=== PATIENT | male | born 1965 | race Caucasian/White ===

== ENCOUNTER 2020-08-08 13:14 | Inpatient (IN) ==
[2020-08-08] MEDS ORDERED: Ondansetron 4 mg VIAL 2 MG/ML 2 ml VIAL IV PRN (14:17)
[2020-08-08] MEDS ORDERED: Furosemide 40 mg/4 ml IV VIAL IV SLOW PU ONE (14:39)
[2020-08-08] MEDS ORDERED: Piperacillin/Tazobac ADVAN 3.375 GM in NS 0.9% 100 ml BAG 100 ML IV ONE (14:41)
[2020-08-08] MEDS ORDERED: Dextrose 50% Syringe 50 ml 25 GM/50 ML SYRINGE IV PUSH PRN (14:41)
[2020-08-08] MEDS ORDERED: Zosyn per Pharmacy NOTE FOLLOW UP SCH (15:00)
[2020-08-08] MEDS: Enoxaparin 40 MG/0.4 ML SYR SUBCUT SCH (17:11)
[2020-08-08] MEDS: Linezolid 600 MG IVPREMIX(*) 600 MG/300 ML BAG IVPB SCH (17:11)
[2020-08-08] MEDS: ZOSYN 3.375 GM Q8H per EXTENDED INFUSION IV SCH (23:03)
[2020-08-09] MEDS: Linezolid 600 MG IVPREMIX(*) 600 MG/300 ML BAG IVPB SCH ×2 (04:26→15:36)
[2020-08-09] MEDS: ZOSYN 3.375 GM Q8H per EXTENDED INFUSION IV SCH ×3 (05:50→21:47)
[2020-08-09 09:27] LABS: ABS Eosinophils 0.5 10^3/ul (0-0.6); ABS Lymphocytes 0.8 10^3/ul (1.0-4.8); ABS Monocytes 0.7 10^3/ul (0-0.8); ABS Neutrophils 5.5 10^3/ul (1.5-7.7); Eosinophil % 6.7 %; Hematocrit 27 % (42-52); Hemoglobin 9.1 g/dL (14.0-18.0); Lymphocyte % 10.1 %; Mean Corpuscular HGB Conc 34 g/dL (31-36); Mean Corpuscular Hemoglobin 28 pg (27-31); Mean Corpuscular Volume 84 fL (80-94); Platelet Count 141 10^3/uL (150-450); Red Blood Count 3.21 10^6 /uL (4.18-5.48); Red Cell Distribution Width 14 % (10-15); White Blood Count 7.5 10^3/uL (3.5-10.8)
[2020-08-09 09:38] LABS: ALT 5 U/L (7-52); AST 8 U/L (13-39); Albumin 2.7 g/dL (3.2-5.2); Albumin/Globulin Ratio 0.8 (1-3); Alkaline Phosphatase 60 U/L (34-104); Anion Gap 8 mmol/L (2-11); BUN/Creatinine Ratio 15.8 (8-20); Blood Urea Nitrogen 26 mg/dL (6-24); C Reactive Protein 227.96 mg/L (<8.01); CO2 Carbon Dioxide 27 mmol/L (22-32); Chloride 102 mmol/L (101-111); EGFR African American 52.7 (>60); EGFR Non-African American 43.5 (>60); Globulin 3.3 g/dL (2-4); Glucose 140 mg/dL (70-100); Magnesium 1.3 mg/dL (1.9-2.7); Potassium 3.9 mmol/L (3.5-5.0); Sodium 137 mmol/L (135-145)
[2020-08-09] MEDS: Potassium Chlor 10 meq TAB PO SCH (09:40)
[2020-08-09 09:51] LABS: Troponin I 0.04 ng/mL (<0.03)
[2020-08-09] MEDS ORDERED: Magnesium Sulf 4 GM/100 ML IV 4,000 MG/100 ML BAG IVPB ONE (09:59)
[2020-08-09] MEDS ORDERED: Furosemide 40 mg/4 ml IV VIAL IV SLOW PU ONE (10:00)
[2020-08-09] MEDS ORDERED: Furosemide 20 mg/2 ml IV VIAL IV SLOW PU ONE (12:33)
[2020-08-09] MEDS: Enoxaparin 40 MG/0.4 ML SYR SUBCUT SCH (15:42)
[2020-08-09 16:17] LABS: ABS Eosinophils 0.4 10^3/ul (0-0.6); ABS Lymphocytes 0.7 10^3/ul (1.0-4.8); ABS Monocytes 0.5 10^3/ul (0-0.8); ABS Neutrophils 4.2 10^3/ul (1.5-7.7); Eosinophil % 7.4 %; Hematocrit 27 % (42-52); Hemoglobin 8.8 g/dL (14.0-18.0); Lymphocyte % 12.3 %; Mean Corpuscular HGB Conc 33 g/dL (31-36); Mean Corpuscular Hemoglobin 28 pg (27-31); Mean Corpuscular Volume 85 fL (80-94); Mean Platelet Volume 8.1 fL (7.4-10.4); Platelet Count 148 10^3/uL (150-450); Red Blood Count 3.14 10^6 /uL (4.18-5.48); Red Cell Distribution Width 15 % (10-15); White Blood Count 5.9 10^3/uL (3.5-10.8)
[2020-08-09 16:26] LABS: Anion Gap 7 mmol/L (2-11); Blood Urea Nitrogen 26 mg/dL (6-24); C Reactive Protein 221.43 mg/L (<8.01); CO2 Carbon Dioxide 28 mmol/L (22-32); Calcium 8.1 mg/dL (8.6-10.3); Chloride 102 mmol/L (101-111); EGFR African American 53.4 (>60); EGFR Non-African American 44.1 (>60); Glucose 100 mg/dL (70-100); Potassium 3.7 mmol/L (3.5-5.0); Sodium 137 mmol/L (135-145)
[2020-08-09 16:46] LABS: Troponin I 0.03 ng/mL (<0.03)
[2020-08-09 17:22] LABS: Magnesium 2.6 mg/dL (1.9-2.7)
[2020-08-09 18:54] LABS: Erythrocyte Sed Rate > 120 mm/Hr (0-19)
[2020-08-09] MEDS ORDERED: levETIRAcetam 500 MG IVPREMIX 500 MG/100 ML BAG IV ONE (22:03)
[2020-08-09 22:21] LABS: Troponin I 0.03 ng/mL (<0.03)
[2020-08-10] MEDS: Linezolid 600 MG IVPREMIX(*) 600 MG/300 ML BAG IVPB SCH ×2 (03:37→16:38)
[2020-08-10] MEDS: ZOSYN 3.375 GM Q8H per EXTENDED INFUSION IV SCH ×3 (05:25→21:32)
[2020-08-10 05:34] LABS: ABS Eosinophils 0.6 10^3/ul (0-0.6); ABS Lymphocytes 0.7 10^3/ul (1.0-4.8); ABS Monocytes 0.5 10^3/ul (0-0.8); ABS Neutrophils 5.7 10^3/ul (1.5-7.7); Eosinophil % 7.6 %; Hematocrit 27 % (42-52); Hemoglobin 9.1 g/dL (14.0-18.0); Lymphocyte % 8.7 %; Mean Corpuscular HGB Conc 34 g/dL (31-36); Mean Corpuscular Hemoglobin 28 pg (27-31); Mean Corpuscular Volume 83 fL (80-94); Mean Platelet Volume 8.2 fL (7.4-10.4); Platelet Count 207 10^3/uL (150-450); Red Blood Count 3.21 10^6 /uL (4.18-5.48); Red Cell Distribution Width 15 % (10-15); White Blood Count 7.5 10^3/uL (3.5-10.8)
[2020-08-10 05:40] LABS: INR 1.91 (0.82-1.09)
[2020-08-10 05:47] LABS: BUN/Creatinine Ratio 16.6 (8-20); Calcium 7.8 mg/dL (8.6-10.3); EGFR African American 61.1 (>60); EGFR Non-African American 50.5 (>60); Magnesium 1.9 mg/dL (1.9-2.7); Potassium 3.9 mmol/L (3.5-5.0)
[2020-08-10] MEDS: CMCS:Simvastatin 20 mg TAB (NF) PO SCH (13:09)
[2020-08-10] MEDS: Potassium Chlor 10 meq TAB PO SCH (13:09)
[2020-08-10] MEDS: Enoxaparin 40 MG/0.4 ML SYR SUBCUT SCH (16:37)
[2020-08-11] MEDS ORDERED: Haloperidol 5 mg/ml SDV IV/IM 5 MG/ML AMP IV SLOW PU ONE (05:30)
[2020-08-11] MEDS ORDERED: Haloperidol 5 mg/ml SDV IV/IM 5 MG/ML AMP ONE (05:31)
[2020-08-11] MEDS: Linezolid 600 MG IVPREMIX(*) 600 MG/300 ML BAG IVPB SCH ×2 (05:37→17:29)
[2020-08-11 06:05] LABS: BUN/Creatinine Ratio 15.7 (8-20); Blood Urea Nitrogen 22 mg/dL (6-24); CO2 Carbon Dioxide 25 mmol/L (22-32); Calcium 7.8 mg/dL (8.6-10.3); Chloride 98 mmol/L (101-111); EGFR African American 63.7 (>60); EGFR Non-African American 52.6 (>60); Glucose 287 mg/dL (70-100); Phosphorus 3.3 mg/dL (2.5-5.0); Sodium 131 mmol/L (135-145)
[2020-08-11 06:07] LABS: ABS Eosinophils 0.7 10^3/ul (0-0.6); ABS Lymphocytes 0.6 10^3/ul (1.0-4.8); ABS Monocytes 0.6 10^3/ul (0-0.8); ABS Neutrophils 6.1 10^3/ul (1.5-7.7); Eosinophil % 8.4 %; Hematocrit 28 % (42-52); Hemoglobin 9.4 g/dL (14.0-18.0); Lymphocyte % 7.8 %; Mean Corpuscular HGB Conc 33 g/dL (31-36); Mean Corpuscular Hemoglobin 28 pg (27-31); Mean Corpuscular Volume 85 fL (80-94); Mean Platelet Volume 7.4 fL (7.4-10.4); Platelet Count 214 10^3/uL (150-450); Red Blood Count 3.36 10^6 /uL (4.18-5.48); Red Cell Distribution Width 15 % (10-15)
[2020-08-11 06:12] LABS: Anion Gap 8 mmol/L (2-11)
[2020-08-11] MEDS: ZOSYN 3.375 GM Q8H per EXTENDED INFUSION IV SCH ×3 (06:32→21:02)
[2020-08-11] MEDS: Potassium Chlor 10 meq TAB PO SCH (09:07)
[2020-08-11] MEDS: CMCS:Simvastatin 20 mg TAB (NF) PO SCH (10:36)
[2020-08-11] MEDS ORDERED: Alteplase (CATHFLO) 2 MG VIAL IV ONE (11:00)
[2020-08-11 11:30] LABS: Magnesium 1.6 mg/dL (1.9-2.7); Potassium Redraw 3.4 mmol/L (3.5-5.0)
[2020-08-11] MEDS: Enoxaparin 40 MG/0.4 ML SYR SUBCUT SCH (14:52)
[2020-08-12] MEDS: Linezolid 600 MG IVPREMIX(*) 600 MG/300 ML BAG IVPB SCH ×2 (03:18→15:59)
[2020-08-12] MEDS: ZOSYN 3.375 GM Q8H per EXTENDED INFUSION IV SCH ×3 (04:29→20:08)
[2020-08-12 04:59] LABS: Anion Gap 6 mmol/L (2-11); BUN/Creatinine Ratio 16.5 (8-20); Blood Urea Nitrogen 23 mg/dL (6-24); CO2 Carbon Dioxide 30 mmol/L (22-32); Calcium 7.9 mg/dL (8.6-10.3); Chloride 100 mmol/L (101-111); EGFR African American 64.2 (>60); EGFR Non-African American 53.1 (>60); Glucose 198 mg/dL (70-100); Potassium 3.3 mmol/L (3.5-5.0); Sodium 136 mmol/L (135-145)
[2020-08-12] MEDS ORDERED: Potassium Chlor 20 meq TAB.ER PO ONE (08:55)
[2020-08-12] MEDS: Potassium Chlor 10 meq TAB PO SCH (08:58)
[2020-08-12] MEDS: CMCS:Simvastatin 20 mg TAB (NF) PO SCH (09:01)
[2020-08-12 15:12] LABS: Magnesium 1.6 mg/dL (1.9-2.7)
[2020-08-12] MEDS: Enoxaparin 40 MG/0.4 ML SYR SUBCUT SCH (15:59)
[2020-08-12 20:23] LABS: Total Iron Binding Capacity 154 mcg/dL (250-450); Transferrin 110 mg/dL (203-362)
[2020-08-12 20:27] LABS: % Iron Saturation 13 % (15-55); Iron < 20 ug/dL (50-212); Unsaturated Iron Binding < 139 ug/dL
[2020-08-12 20:48] LABS: Folate 6.91 ng/mL (>3.99)
[2020-08-12 20:49] LABS: Vitamin B12 391 pg/mL (180-914)
[2020-08-13] MEDS: Linezolid 600 MG IVPREMIX(*) 600 MG/300 ML BAG IVPB SCH ×2 (03:06→21:52)
[2020-08-13] MEDS: ZOSYN 3.375 GM Q8H per EXTENDED INFUSION IV SCH ×3 (04:27→22:07)
[2020-08-13] MEDS: Potassium Chlor 10 meq TAB PO SCH (08:58)
[2020-08-13] MEDS: Insulin GLARGINE 100 un/ml 10 ml VIAL SUBCUT SCH (09:01)
[2020-08-13] MEDS: CMCS:Simvastatin 20 mg TAB (NF) PO SCH (09:04)
[2020-08-13] MEDS ORDERED: Propofol 10 MG/ML 20 ML BTL ONE ×2 (18:33→18:36)
[2020-08-13] MEDS ORDERED: Lidocaine 2% PF 5 ML VIAL ONE (18:33)
[2020-08-13] MEDS ORDERED: Bupivacaine 0.25% SDV 30 ML ONE (18:41)
[2020-08-13] MEDS ORDERED: Ondansetron 4 mg VIAL 2 MG/ML 2 ml VIAL IV PRN (19:05)
[2020-08-13] MEDS ORDERED: Naloxone 0.4 mg VIAL 0.4 mg/ml 1 ml VIAL IV PRN (19:05)
[2020-08-13] MEDS ORDERED: HYDROmorphone 1 MG/1 ML SYRINGE IV PRN (19:05)
[2020-08-13] MEDS ORDERED: fentaNYL 100 mcg/2 ml 50 MCG/ML VIAL IV PRN (19:05)
[2020-08-13] MEDS: Enoxaparin 40 MG/0.4 ML SYR SUBCUT SCH (22:37)
[2020-08-14 04:40] LABS: ABS Basophils 0.1 10^3/ul (0-0.2); ABS Eosinophils 0.3 10^3/ul (0-0.6); ABS Monocytes 0.4 10^3/ul (0-0.8); ABS Neutrophils 2.6 10^3/ul (1.5-7.7); Eosinophil % 7.2 %; Hematocrit 27 % (42-52); Hemoglobin 9.2 g/dL (14.0-18.0); Lymphocyte % 23.2 %; Mean Corpuscular HGB Conc 34 g/dL (31-36); Mean Corpuscular Hemoglobin 28 pg (27-31); Mean Corpuscular Volume 82 fL (80-94); Mean Platelet Volume 6.6 fL (7.4-10.4); Nucleated Red Blood Cells % 0.1; Platelet Count 248 10^3/uL (150-450); Red Blood Count 3.31 10^6 /uL (4.18-5.48); Red Cell Distribution Width 15 % (10-15); White Blood Count 4.3 10^3/uL (3.5-10.8)
[2020-08-14 04:56] LABS: Albumin 2.6 g/dL (3.2-5.2); Albumin/Globulin Ratio 0.8 (1-3); BUN/Creatinine Ratio 15.1 (8-20); Calcium 8.2 mg/dL (8.6-10.3); EGFR African American 87.8 (>60); EGFR Non-African American 72.5 (>60); Globulin 3.1 g/dL (2-4); Magnesium 1.5 mg/dL (1.9-2.7); Potassium 3.2 mmol/L (3.5-5.0); Total Bilirubin 0.3 mg/dL (0.2-1.0); Total Protein 5.7 g/dL (6.4-8.9)
[2020-08-14] MEDS: ZOSYN 3.375 GM Q8H per EXTENDED INFUSION IV SCH ×3 (05:37→22:51)
[2020-08-14] MEDS: Linezolid 600 MG IVPREMIX(*) 600 MG/300 ML BAG IVPB SCH ×3 (09:18→20:59)
[2020-08-14] MEDS: Insulin GLARGINE 100 un/ml 10 ml VIAL SUBCUT SCH (09:29)
[2020-08-14] MEDS: Potassium Chlor 10 meq TAB PO SCH (09:30)
[2020-08-14] MEDS: CMCS:Simvastatin 20 mg TAB (NF) PO SCH (09:30)
[2020-08-14] MEDS ORDERED: Magnesium Sulfate IV 3 GM in NS 0.9% 100 ml BAG 100 ML IVPB ONE (16:52)
[2020-08-14] MEDS: KCL 10 MEQ/50 ML IVPREMIX 10 MEQ/50 ML BAG IV SCH ×2 (20:16→21:52)
[2020-08-15] MEDS: KCL 10 MEQ/50 ML IVPREMIX 10 MEQ/50 ML BAG IV SCH (00:02)
[2020-08-15 05:29] LABS: BUN/Creatinine Ratio 12.6 (8-20); Calcium 7.5 mg/dL (8.6-10.3); EGFR African American 83.2 (>60); EGFR Non-African American 68.8 (>60); Magnesium 1.9 mg/dL (1.9-2.7); Potassium 3.5 mmol/L (3.5-5.0)
[2020-08-15] MEDS: Insulin GLARGINE 100 un/ml 10 ml VIAL SUBCUT SCH (08:58)
[2020-08-15] MEDS: Linezolid 600 MG IVPREMIX(*) 600 MG/300 ML BAG IVPB SCH ×2 (08:59→22:49)
[2020-08-15] MEDS: CMCS:Simvastatin 20 mg TAB (NF) PO SCH (09:15)
[2020-08-15] MEDS: Potassium Chlor 20 meq TAB.ER PO SCH (09:18)
[2020-08-15] MEDS: ZOSYN 3.375 GM Q8H per EXTENDED INFUSION IV SCH ×2 (12:07→20:11)
[2020-08-16] MEDS: ZOSYN 3.375 GM Q8H per EXTENDED INFUSION IV SCH ×3 (04:25→20:23)
[2020-08-16 08:17] LABS: ABS Basophils 0.1 10^3/ul (0-0.2); ABS Eosinophils 0.3 10^3/ul (0-0.6); ABS Lymphocytes 1.2 10^3/ul (1.0-4.8); ABS Monocytes 0.4 10^3/ul (0-0.8); ABS Neutrophils 2.4 10^3/ul (1.5-7.7); Eosinophil % 7.8 %; Hematocrit 26 % (42-52); Hemoglobin 8.6 g/dL (14.0-18.0); Lymphocyte % 27.4 %; Mean Corpuscular HGB Conc 34 g/dL (31-36); Mean Corpuscular Hemoglobin 28 pg (27-31); Mean Corpuscular Volume 83 fL (80-94); Mean Platelet Volume 6.6 fL (7.4-10.4); Platelet Count 204 10^3/uL (150-450); Red Blood Count 3.09 10^6 /uL (4.18-5.48); Red Cell Distribution Width 15 % (10-15); White Blood Count 4.5 10^3/uL (3.5-10.8)
[2020-08-16 08:33] LABS: Albumin 2.5 g/dL (3.2-5.2); Albumin/Globulin Ratio 0.8 (1-3); BUN/Creatinine Ratio 12.8 (8-20); C Reactive Protein 22.98 mg/L (<8.01); Calcium 7.8 mg/dL (8.6-10.3); EGFR Non-African American 70.2 (>60); Globulin 3.1 g/dL (2-4); Potassium 3.8 mmol/L (3.5-5.0); Total Bilirubin 0.2 mg/dL (0.2-1.0); Total Protein 5.6 g/dL (6.4-8.9)
[2020-08-16] MEDS: Insulin GLARGINE 100 un/ml 10 ml VIAL SUBCUT SCH (08:42)
[2020-08-16] MEDS: CMCS:Simvastatin 20 mg TAB (NF) PO SCH (08:50)
[2020-08-16] MEDS: Potassium Chlor 20 meq TAB.ER PO SCH (08:52)
[2020-08-16] MEDS: Linezolid 600 MG IVPREMIX(*) 600 MG/300 ML BAG IVPB SCH ×2 (08:56→21:56)
[2020-08-17] MEDS: ZOSYN 3.375 GM Q8H per EXTENDED INFUSION IV SCH ×3 (04:28→21:00)
[2020-08-17] MEDS: Potassium Chlor 20 meq TAB.ER PO SCH (08:53)
[2020-08-17] MEDS: Insulin GLARGINE 100 un/ml 10 ml VIAL SUBCUT SCH (08:55)
[2020-08-17] MEDS: CMCS:Simvastatin 20 mg TAB (NF) PO SCH (08:58)
[2020-08-17] MEDS: Linezolid 600 MG IVPREMIX(*) 600 MG/300 ML BAG IVPB SCH ×2 (09:02→21:01)
[2020-08-17 09:23] LABS: ABS Basophils 0.1 10^3/ul (0-0.2); ABS Eosinophils 0.3 10^3/ul (0-0.6); ABS Lymphocytes 1.4 10^3/ul (1.0-4.8); ABS Monocytes 0.4 10^3/ul (0-0.8); ABS Neutrophils 2.6 10^3/ul (1.5-7.7); Eosinophil % 5.6 %; Hematocrit 26 % (42-52); Hemoglobin 8.6 g/dL (14.0-18.0); Lymphocyte % 29.1 %; Mean Corpuscular HGB Conc 33 g/dL (31-36); Mean Corpuscular Hemoglobin 27 pg (27-31); Mean Corpuscular Volume 82 fL (80-94); Mean Platelet Volume 6.8 fL (7.4-10.4); Platelet Count 214 10^3/uL (150-450); Red Blood Count 3.13 10^6 /uL (4.18-5.48); Red Cell Distribution Width 15 % (10-15); White Blood Count 4.7 10^3/uL (3.5-10.8)
[2020-08-17 09:40] LABS: BUN/Creatinine Ratio 14.2 (8-20); Calcium 7.7 mg/dL (8.6-10.3); EGFR African American 87.8 (>60); EGFR Non-African American 72.5 (>60); Potassium 3.5 mmol/L (3.5-5.0)
[2020-08-18] MEDS: ZOSYN 3.375 GM Q8H per EXTENDED INFUSION IV SCH ×3 (03:59→21:03)
[2020-08-18 04:11] LABS: ABS Basophils 0.1 10^3/ul (0-0.2); ABS Eosinophils 0.3 10^3/ul (0-0.6); ABS Lymphocytes 1.2 10^3/ul (1.0-4.8); ABS Monocytes 0.4 10^3/ul (0-0.8); ABS Neutrophils 2.2 10^3/ul (1.5-7.7); Eosinophil % 6.3 %; Hematocrit 27 % (42-52); Hemoglobin 9.1 g/dL (14.0-18.0); Lymphocyte % 29.7 %; Mean Corpuscular HGB Conc 33 g/dL (31-36); Mean Corpuscular Hemoglobin 27 pg (27-31); Mean Corpuscular Volume 82 fL (80-94); Mean Platelet Volume 6.6 fL (7.4-10.4); Platelet Count 208 10^3/uL (150-450); Red Blood Count 3.33 10^6 /uL (4.18-5.48); Red Cell Distribution Width 15 % (10-15); White Blood Count 4.2 10^3/uL (3.5-10.8)
[2020-08-18 04:25] LABS: BUN/Creatinine Ratio 13.6 (8-20); Calcium 7.9 mg/dL (8.6-10.3); EGFR African American 84.1 (>60); EGFR Non-African American 69.5 (>60); Potassium 3.7 mmol/L (3.5-5.0)
[2020-08-18] MEDS: Insulin GLARGINE 100 un/ml 10 ml VIAL SUBCUT SCH (08:32)
[2020-08-18] MEDS: Linezolid 600 MG IVPREMIX(*) 600 MG/300 ML BAG IVPB SCH ×2 (09:11→21:49)
[2020-08-18] MEDS: Potassium Chlor 20 meq TAB.ER PO SCH (09:12)
[2020-08-18] MEDS: CMCS:Simvastatin 20 mg TAB (NF) PO SCH (09:12)
[2020-08-19] MEDS: ZOSYN 3.375 GM Q8H per EXTENDED INFUSION IV SCH ×3 (03:32→21:58)
[2020-08-19] MEDS: Insulin GLARGINE 100 un/ml 10 ml VIAL SUBCUT SCH (10:48)
[2020-08-19] MEDS: Linezolid 600 MG IVPREMIX(*) 600 MG/300 ML BAG IVPB SCH ×2 (10:57→22:07)
[2020-08-19] MEDS: Potassium Chlor 20 meq TAB.ER PO SCH (11:24)
[2020-08-19] MEDS: CMCS:Simvastatin 20 mg TAB (NF) PO SCH (11:25)
[2020-08-19 11:52] LABS: ABS Basophils 0.1 10^3/ul (0-0.2); ABS Eosinophils 0.1 10^3/ul (0-0.6); ABS Lymphocytes 0.9 10^3/ul (1.0-4.8); ABS Monocytes 0.3 10^3/ul (0-0.8); ABS Neutrophils 1.4 10^3/ul (1.5-7.7); Eosinophil % 4.8 %; Hematocrit 27 % (42-52); Hemoglobin 8.9 g/dL (14.0-18.0); Lymphocyte % 32.5 %; Mean Corpuscular HGB Conc 33 g/dL (31-36); Mean Corpuscular Hemoglobin 27 pg (27-31); Mean Corpuscular Volume 82 fL (80-94); Mean Platelet Volume 6.8 fL (7.4-10.4); Nucleated Red Blood Cells % 0.1; Platelet Count 188 10^3/uL (150-450); Red Blood Count 3.28 10^6 /uL (4.18-5.48); Red Cell Distribution Width 15 % (10-15); White Blood Count 2.9 10^3/uL (3.5-10.8)
[2020-08-19 12:10] LABS: Calcium 8.3 mg/dL (8.6-10.3); EGFR African American 85.9 (>60); Potassium 3.8 mmol/L (3.5-5.0)
[2020-08-20] MEDS: ZOSYN 3.375 GM Q8H per EXTENDED INFUSION IV SCH ×4 (04:08→14:36)
[2020-08-20 09:48] LABS: ABS Basophils 0.1 10^3/ul (0-0.2); ABS Eosinophils 0.2 10^3/ul (0-0.6); ABS Lymphocytes 1.3 10^3/ul (1.0-4.8); ABS Monocytes 0.5 10^3/ul (0-0.8); ABS Neutrophils 1.4 10^3/ul (1.5-7.7); Eosinophil % 5.4 %; Hematocrit 28 % (42-52); Hemoglobin 9.3 g/dL (14.0-18.0); Lymphocyte % 36.6 %; Mean Corpuscular HGB Conc 33 g/dL (31-36); Mean Corpuscular Hemoglobin 27 pg (27-31); Mean Corpuscular Volume 82 fL (80-94); Mean Platelet Volume 6.6 fL (7.4-10.4); Nucleated Red Blood Cells % 0.1; Platelet Count 168 10^3/uL (150-450); Red Blood Count 3.39 10^6 /uL (4.18-5.48); Red Cell Distribution Width 15 % (10-15); White Blood Count 3.4 10^3/uL (3.5-10.8)
[2020-08-20 10:04] LABS: BUN/Creatinine Ratio 12.3 (8-20); Calcium 8.2 mg/dL (8.6-10.3); EGFR African American 80.7 (>60); EGFR Non-African American 66.7 (>60); Potassium 4.1 mmol/L (3.5-5.0)
[2020-08-20] MEDS: Linezolid 600 MG IVPREMIX(*) 600 MG/300 ML BAG IVPB SCH ×2 (10:09→20:38)
[2020-08-20] MEDS: Pantoprazole VIAL 40 MG VIAL IV SCH (10:26)
[2020-08-20] MEDS: CMCS:Simvastatin 20 mg TAB (NF) PO SCH (10:30)
[2020-08-20] MEDS: Potassium Chlor 20 meq TAB.ER PO SCH (10:31)
[2020-08-20] MEDS: Insulin GLARGINE 100 un/ml 10 ml VIAL SUBCUT SCH (10:43)
[2020-08-20] MEDS ORDERED: ZOSYN 3.375 GM Q8H per EXTENDED INFUSION IV SCH (18:00)
[2020-08-21 04:58] LABS: ABS Basophils 0.1 10^3/ul (0-0.2); ABS Eosinophils 0.2 10^3/ul (0-0.6); ABS Lymphocytes 1.2 10^3/ul (1.0-4.8); ABS Monocytes 0.4 10^3/ul (0-0.8); ABS Neutrophils 1.5 10^3/ul (1.5-7.7); Eosinophil % 4.6 %; Hematocrit 27 % (42-52); Lymphocyte % 36.3 %; Mean Corpuscular HGB Conc 34 g/dL (31-36); Mean Corpuscular Hemoglobin 28 pg (27-31); Mean Corpuscular Volume 82 fL (80-94); Mean Platelet Volume 6.9 fL (7.4-10.4); Platelet Count 157 10^3/uL (150-450); Red Blood Count 3.25 10^6 /uL (4.18-5.48); Red Cell Distribution Width 15 % (10-15); White Blood Count 3.4 10^3/uL (3.5-10.8)
[2020-08-21 05:12] LABS: BUN/Creatinine Ratio 11.9 (8-20); Calcium 8.2 mg/dL (8.6-10.3); EGFR Non-African American 70.2 (>60); Potassium 3.6 mmol/L (3.5-5.0)
[2020-08-21] MEDS: Insulin GLARGINE 100 un/ml 10 ml VIAL SUBCUT SCH (09:50)
[2020-08-21] MEDS: Potassium Chlor 20 meq TAB.ER PO SCH (09:52)
[2020-08-21] MEDS: Linezolid 600 MG IVPREMIX(*) 600 MG/300 ML BAG IVPB SCH ×2 (09:59→23:08)
[2020-08-21] MEDS: Cefepime 2 GM in Dextrose 2 GM/50 ML BAG IV SCH ×2 (09:59→23:07)
[2020-08-21] MEDS: Pantoprazole VIAL 40 MG VIAL IV SCH (10:19)
[2020-08-21] MEDS: CMCS:Simvastatin 20 mg TAB (NF) PO SCH (10:20)
[2020-08-21 11:44] LABS: Magnesium 1.6 mg/dL (1.9-2.7)
[2020-08-21] MEDS ORDERED: Magnesium Sulfate 2 gm BAG 2 GM/50 ML BAG IVPB ONE (12:16)
[2020-08-22 06:04] LABS: ABS Eosinophils 0.2 10^3/ul (0-0.6); ABS Lymphocytes 1.2 10^3/ul (1.0-4.8); ABS Monocytes 0.4 10^3/ul (0-0.8); ABS Neutrophils 1.2 10^3/ul (1.5-7.7); Hematocrit 25 % (42-52); Hemoglobin 8.5 g/dL (14.0-18.0); Lymphocyte % 40.1 %; Mean Corpuscular HGB Conc 34 g/dL (31-36); Mean Corpuscular Hemoglobin 27 pg (27-31); Mean Corpuscular Volume 80 fL (80-94); Mean Platelet Volume 7.1 fL (7.4-10.4); Nucleated Red Blood Cells % 0.1; Platelet Count 128 10^3/uL (150-450); Red Blood Count 3.13 10^6 /uL (4.18-5.48); Red Cell Distribution Width 15 % (10-15)
[2020-08-22 06:31] LABS: Calcium 8.2 mg/dL (8.6-10.3); EGFR African American 93.9 (>60); EGFR Non-African American 77.6 (>60); Magnesium 1.8 mg/dL (1.9-2.7); Potassium 3.8 mmol/L (3.5-5.0)
[2020-08-22] MEDS ORDERED: Magnesium Sulfate 2 gm BAG 2 GM/50 ML BAG IVPB ONE (07:11)
[2020-08-22] MEDS: Pantoprazole VIAL 40 MG VIAL IV SCH (08:22)
[2020-08-22] MEDS: CMCS:Simvastatin 20 mg TAB (NF) PO SCH (08:54)
[2020-08-22] MEDS: Potassium Chlor 20 meq TAB.ER PO SCH (08:54)
[2020-08-22] MEDS: Cefepime 2 GM in Dextrose 2 GM/50 ML BAG IV SCH ×3 (09:34→23:13)
[2020-08-22] MEDS: Linezolid 600 MG IVPREMIX(*) 600 MG/300 ML BAG IVPB SCH ×2 (09:34→21:00)
[2020-08-22] MEDS: Insulin GLARGINE 100 un/ml 10 ml VIAL SUBCUT SCH (11:38)
[2020-08-22] MEDS ORDERED: Lorazepam PYXIS KEY PRN (12:55)
[2020-08-22] MEDS ORDERED: LORazepam 2 mg VIAL 1 ml IV PUSH ONE (12:55)
[2020-08-22] MEDS: Metoprolol Tartrate 5 mg VIAL 5 ml VIAL (1 mg/ml) IV SCH ×2 (14:53→20:00)
[2020-08-23] MEDS: Metoprolol Tartrate 5 mg VIAL 5 ml VIAL (1 mg/ml) IV SCH ×4 (02:00→21:41)
[2020-08-23] MEDS: Cefepime 2 GM in Dextrose 2 GM/50 ML BAG IV SCH (10:59)
[2020-08-23] MEDS: Pantoprazole VIAL 40 MG VIAL IV SCH (10:59)
[2020-08-23] MEDS: Potassium Chlor 20 meq TAB.ER PO SCH (11:10)
[2020-08-23] MEDS: Insulin GLARGINE 100 un/ml 10 ml VIAL SUBCUT SCH (11:10)
[2020-08-23] MEDS: CMCS:Simvastatin 20 mg TAB (NF) PO SCH (11:11)
[2020-08-23] MEDS: Linezolid 600 MG IVPREMIX(*) 600 MG/300 ML BAG IVPB SCH ×3 (12:09→22:29)
[2020-08-23] MEDS: levETIRAcetam 500 MG IVPREMIX 500 MG/100 ML BAG IV SCH ×2 (13:16→21:47)
[2020-08-23] MEDS ORDERED: Cefepime 2 GM in NS 0.9% 50 ML 50 ML IVPB SCH (21:00)
[2020-08-24] MEDS: Metoprolol Tartrate 5 mg VIAL 5 ml VIAL (1 mg/ml) IV SCH ×3 (02:58→14:32)
[2020-08-24 05:43] LABS: ABS Eosinophils 0.2 10^3/ul (0-0.6); ABS Lymphocytes 1.2 10^3/ul (1.0-4.8); ABS Monocytes 0.3 10^3/ul (0-0.8); ABS Neutrophils 1.7 10^3/ul (1.5-7.7); Eosinophil % 4.6 %; Hematocrit 27 % (42-52); Hemoglobin 9.2 g/dL (14.0-18.0); Lymphocyte % 34.3 %; Mean Corpuscular HGB Conc 34 g/dL (31-36); Mean Corpuscular Hemoglobin 27 pg (27-31); Mean Corpuscular Volume 80 fL (80-94); Mean Platelet Volume 7.7 fL (7.4-10.4); Platelet Count 123 10^3/uL (150-450); Red Blood Count 3.41 10^6 /uL (4.18-5.48); Red Cell Distribution Width 14 % (10-15); White Blood Count 3.4 10^3/uL (3.5-10.8)
[2020-08-24 06:08] LABS: Calcium 8.2 mg/dL (8.6-10.3); EGFR African American 93.9 (>60); EGFR Non-African American 77.6 (>60); Magnesium 1.8 mg/dL (1.9-2.7); Potassium 3.9 mmol/L (3.5-5.0); Total Bilirubin 0.3 mg/dL (0.2-1.0)
[2020-08-24] MEDS ORDERED: Magnesium Sulfate IV 1GM/100ML 1 GM/100 ML BAG IV ONE (08:13)
[2020-08-24] MEDS: CMCS:Simvastatin 20 mg TAB (NF) PO SCH (08:59)
[2020-08-24] MEDS: Pantoprazole VIAL 40 MG VIAL IV SCH (09:00)
[2020-08-24] MEDS: Potassium Chlor 20 meq TAB.ER PO SCH ×2 (09:00→09:16)
[2020-08-24] MEDS: Insulin GLARGINE 100 un/ml 10 ml VIAL SUBCUT SCH (09:25)
[2020-08-24] MEDS: Linezolid 600 MG IVPREMIX(*) 600 MG/300 ML BAG IVPB SCH (10:03)
[2020-08-24] MEDS: levETIRAcetam 500 MG IVPREMIX 500 MG/100 ML BAG IV SCH (11:34)
[2020-08-24 14:58] VITALS: BP 154/68
[2020-08-24] MEDS ORDERED: Cefepime 2 GM in Dextrose 2 GM/50 ML BAG IV SCH (15:00)
== END 2020-08-24 14:15 | disposition swing bed (61) | DRG 987 ==
LOC: MED → OBSVTOIN 14:18 → ICU 08-09 10:47 → MEDTELE 08-11 11:39
PROVIDERS: ADMIT Internal Medicine; ATTEND Internal Medicine

== ENCOUNTER 2020-08-24 14:16 | Inpatient (IN) ==
[2020-08-24] MEDS ORDERED: Ondansetron 4 mg VIAL 2 MG/ML 2 ml VIAL IV PRN (14:36)
[2020-08-24] MEDS ORDERED: Dextrose 50% Syringe 50 ml 25 GM/50 ML SYRINGE IV PUSH PRN (14:39)
[2020-08-24] MEDS: Metoprolol Tartrate 5 mg VIAL 5 ml VIAL (1 mg/ml) IV SCH ×3 (15:49→20:17)
[2020-08-24] MEDS: Pantoprazole VIAL 40 MG VIAL IV SCH ×2 (15:50→15:53)
[2020-08-24] MEDS: Cefepime 2 GM in Dextrose 2 GM/50 ML BAG IV SCH (20:17)
[2020-08-24] MEDS: Linezolid 600 MG IVPREMIX(*) 600 MG/300 ML BAG IVPB SCH (21:07)
[2020-08-25] MEDS: Metoprolol Tartrate 5 mg VIAL 5 ml VIAL (1 mg/ml) IV SCH ×4 (02:45→21:00)
[2020-08-25 02:58] LABS: ABS Basophils 0.1 10^3/ul (0-0.2); ABS Eosinophils 0.2 10^3/ul (0-0.6); ABS Lymphocytes 1.2 10^3/ul (1.0-4.8); ABS Monocytes 0.3 10^3/ul (0-0.8); ABS Neutrophils 1.8 10^3/ul (1.5-7.7); Eosinophil % 4.6 %; Hematocrit 26 % (42-52); Hemoglobin 8.9 g/dL (14.0-18.0); Lymphocyte % 33.9 %; Mean Corpuscular HGB Conc 34 g/dL (31-36); Mean Corpuscular Hemoglobin 27 pg (27-31); Mean Corpuscular Volume 81 fL (80-94); Mean Platelet Volume 7.6 fL (7.4-10.4); Nucleated Red Blood Cells % 0.1; Platelet Count 102 10^3/uL (150-450); Red Blood Count 3.27 10^6 /uL (4.18-5.48); Red Cell Distribution Width 15 % (10-15); White Blood Count 3.5 10^3/uL (3.5-10.8)
[2020-08-25 03:12] LABS: BUN/Creatinine Ratio 14.9 (8-20); Calcium 8.5 mg/dL (8.6-10.3); EGFR African American 100.8 (>60); EGFR Non-African American 83.3 (>60); Magnesium 1.8 mg/dL (1.9-2.7); Potassium 3.7 mmol/L (3.5-5.0)
[2020-08-25] MEDS ORDERED: Magnesium Sulfate IV 1GM/100ML 1 GM/100 ML BAG IV ONE (08:17)
[2020-08-25] MEDS: Cefepime 2 GM in Dextrose 2 GM/50 ML BAG IV SCH ×2 (08:45→21:00)
[2020-08-25] MEDS: Insulin GLARGINE 100 un/ml 10 ml VIAL SUBCUT SCH (08:50)
[2020-08-25] MEDS: Cholecalciferol (VIT D3) 1,000 unit TAB PO SCH (08:54)
[2020-08-25] MEDS: CMC:Simvastatin 20 mg TAB (NF) PO SCH (08:55)
[2020-08-25] MEDS: Potassium Chlor 10 meq TAB PO SCH (08:55)
[2020-08-25] MEDS: Linezolid 600 MG IVPREMIX(*) 600 MG/300 ML BAG IVPB SCH ×2 (11:35→21:59)
[2020-08-25] MEDS: Pantoprazole VIAL 40 MG VIAL IV SCH (14:39)
[2020-08-26] MEDS: Metoprolol Tartrate 5 mg VIAL 5 ml VIAL (1 mg/ml) IV SCH ×4 (02:33→21:39)
[2020-08-26] MEDS: Cefepime 2 GM in Dextrose 2 GM/50 ML BAG IV SCH ×2 (07:38→21:31)
[2020-08-26] MEDS: Insulin GLARGINE 100 un/ml 10 ml VIAL SUBCUT SCH (07:51)
[2020-08-26] MEDS: Cholecalciferol (VIT D3) 1,000 unit TAB PO SCH (07:57)
[2020-08-26] MEDS: CMC:Simvastatin 20 mg TAB (NF) PO SCH (07:58)
[2020-08-26] MEDS: Potassium Chlor 10 meq TAB PO SCH (07:58)
[2020-08-26] MEDS: Linezolid 600 MG IVPREMIX(*) 600 MG/300 ML BAG IVPB SCH ×2 (08:21→22:20)
[2020-08-26] MEDS: Pantoprazole VIAL 40 MG VIAL IV SCH (14:15)
[2020-08-27] MEDS: Metoprolol Tartrate 5 mg VIAL 5 ml VIAL (1 mg/ml) IV SCH ×4 (02:32→21:46)
[2020-08-27] MEDS: Cefepime 2 GM in Dextrose 2 GM/50 ML BAG IV SCH (08:52)
[2020-08-27] MEDS: Cholecalciferol (VIT D3) 1,000 unit TAB PO SCH (08:53)
[2020-08-27] MEDS: CMC:Simvastatin 20 mg TAB (NF) PO SCH (08:55)
[2020-08-27] MEDS: Potassium Chlor 10 meq TAB PO SCH (08:55)
[2020-08-27] MEDS: Insulin GLARGINE 100 un/ml 10 ml VIAL SUBCUT SCH (10:04)
[2020-08-27] MEDS: Linezolid 600 MG IVPREMIX(*) 600 MG/300 ML BAG IVPB SCH (10:06)
[2020-08-27] MEDS: cefTRIAXone 2 GM ADDV.VIAL 2 GM in NS 0.9% 100 ml BAG 100 ML IV SCH (21:46)
[2020-08-28] MEDS: Metoprolol Tartrate 5 mg VIAL 5 ml VIAL (1 mg/ml) IV SCH ×4 (03:08→20:32)
[2020-08-28] MEDS: Insulin GLARGINE 100 un/ml 10 ml VIAL SUBCUT SCH (10:31)
[2020-08-28 11:02] LABS: Hematocrit 25 % (42-52); Hemoglobin 8.4 g/dL (14.0-18.0); Mean Corpuscular HGB Conc 33 g/dL (31-36); Mean Corpuscular Hemoglobin 27 pg (27-31); Mean Corpuscular Volume 80 fL (80-94); Red Blood Count 3.16 10^6 /uL (4.18-5.48); Red Cell Distribution Width 15 % (10-15)
[2020-08-28 11:11] LABS: BUN/Creatinine Ratio 20.5 (8-20); Calcium 8.4 mg/dL (8.6-10.3); EGFR African American 116.4 (>60); EGFR Non-African American 96.2 (>60); Magnesium 1.6 mg/dL (1.9-2.7); Potassium 3.6 mmol/L (3.5-5.0)
[2020-08-28] MEDS: Cholecalciferol (VIT D3) 1,000 unit TAB PO SCH (11:15)
[2020-08-28] MEDS: Potassium Chlor 10 meq TAB PO SCH (11:17)
[2020-08-28] MEDS: CMC:Simvastatin 20 mg TAB (NF) PO SCH (11:18)
[2020-08-28 11:26] LABS: ABS Eosinophils 0.3 10^3/ul (0-0.6); ABS Lymphocytes 1.2 10^3/ul (1.0-4.8); ABS Monocytes 0.3 10^3/ul (0-0.8); ABS Neutrophils 1.2 10^3/ul (1.5-7.7); Mean Platelet Volume 8.1 fL (7.4-10.4); Platelet Count 73 10^3/uL (150-450)
[2020-08-28] MEDS: cefTRIAXone 2 GM ADDV.VIAL 2 GM in NS 0.9% 100 ml BAG 100 ML IV SCH (20:04)
[2020-08-29] MEDS: Metoprolol Tartrate 5 mg VIAL 5 ml VIAL (1 mg/ml) IV SCH ×4 (02:50→20:36)
[2020-08-29] MEDS ORDERED: Magnesium Sulfate 2 gm BAG 2 GM/50 ML BAG IVPB ONE (08:36)
[2020-08-29] MEDS: Potassium Chlor 10 meq TAB PO SCH (09:01)
[2020-08-29] MEDS: Cholecalciferol (VIT D3) 1,000 unit TAB PO SCH (09:01)
[2020-08-29] MEDS: Insulin GLARGINE 100 un/ml 10 ml VIAL SUBCUT SCH ×2 (09:02→12:17)
[2020-08-29] MEDS: CMC:Simvastatin 20 mg TAB (NF) PO SCH (09:02)
[2020-08-29] MEDS: cefTRIAXone 2 GM ADDV.VIAL 2 GM in NS 0.9% 100 ml BAG 100 ML IV SCH (20:36)
[2020-08-30] MEDS: Metoprolol Tartrate 5 mg VIAL 5 ml VIAL (1 mg/ml) IV SCH ×4 (01:55→21:00)
[2020-08-30] MEDS: CMC:Simvastatin 20 mg TAB (NF) PO SCH (10:40)
[2020-08-30] MEDS: Potassium Chlor 10 meq TAB PO SCH (10:44)
[2020-08-30] MEDS: Cholecalciferol (VIT D3) 1,000 unit TAB PO SCH (10:44)
[2020-08-30] MEDS: Insulin GLARGINE 100 un/ml 10 ml VIAL SUBCUT SCH (10:45)
[2020-08-30] MEDS ORDERED: Lidocaine 2.5%/Prilocain 2.5% 5 GM TUBE TOPICAL ONE (11:40)
[2020-08-30] MEDS: cefTRIAXone 2 GM ADDV.VIAL 2 GM in NS 0.9% 100 ml BAG 100 ML IV SCH (20:27)
[2020-08-31] MEDS: Metoprolol Tartrate 5 mg VIAL 5 ml VIAL (1 mg/ml) IV SCH ×5 (01:44→20:35)
[2020-08-31 05:49] LABS: Hematocrit 26 % (42-52); Hemoglobin 8.8 g/dL (14.0-18.0); Mean Corpuscular HGB Conc 33 g/dL (31-36); Mean Corpuscular Hemoglobin 27 pg (27-31); Mean Corpuscular Volume 80 fL (80-94); Mean Platelet Volume 8.7 fL (7.4-10.4); Platelet Count 69 10^3/uL (150-450); Red Cell Distribution Width 15 % (10-15)
[2020-08-31 06:04] LABS: BUN/Creatinine Ratio 19.3 (8-20); Calcium 8.3 mg/dL (8.6-10.3); EGFR African American 80.7 (>60); EGFR Non-African American 66.7 (>60); Magnesium 1.4 mg/dL (1.9-2.7)
[2020-08-31] MEDS ORDERED: Magnesium Sulfate IV 3 GM in NS 0.9% 100 ml BAG 100 ML IVPB ONE (08:24)
[2020-08-31] MEDS: CMC:Simvastatin 20 mg TAB (NF) PO SCH (09:12)
[2020-08-31] MEDS: Potassium Chlor 10 meq TAB PO SCH (09:16)
[2020-08-31] MEDS: Cholecalciferol (VIT D3) 1,000 unit TAB PO SCH (09:17)
[2020-08-31] MEDS: Insulin GLARGINE 100 un/ml 10 ml VIAL SUBCUT SCH (09:20)
[2020-08-31] MEDS ORDERED: Lorazepam PYXIS KEY PRN (15:33)
[2020-08-31] MEDS ORDERED: LORazepam 2 mg VIAL 1 ml IV PUSH ONE (15:33)
[2020-08-31 17:03] LABS: C Reactive Protein 2.23 mg/L (<8.01)
[2020-08-31] MEDS: cefTRIAXone 2 GM ADDV.VIAL 2 GM in NS 0.9% 100 ml BAG 100 ML IV SCH (20:18)
[2020-09-01] MEDS: Metoprolol Tartrate 5 mg VIAL 5 ml VIAL (1 mg/ml) IV SCH ×4 (02:56→20:52)
[2020-09-01] MEDS ORDERED: Magnesium Sulfate IV 3 GM in NS 0.9% 100 ml BAG 100 ML IVPB ONE (07:51)
[2020-09-01] MEDS: Insulin GLARGINE 100 un/ml 10 ml VIAL SUBCUT SCH (09:16)
[2020-09-01] MEDS: Cholecalciferol (VIT D3) 1,000 unit TAB PO SCH (09:22)
[2020-09-01] MEDS: Potassium Chlor 10 meq TAB PO SCH (09:23)
[2020-09-01] MEDS: CMC:Simvastatin 20 mg TAB (NF) PO SCH (09:25)
[2020-09-01] MEDS ORDERED: LORazepam 2 mg VIAL 1 ml IV PUSH ONE ×2 (10:05→23:41)
[2020-09-01] MEDS ORDERED: Lorazepam PYXIS KEY PRN ×2 (10:05→23:41)
[2020-09-01] MEDS ORDERED: LORazepam 2 mg VIAL 1 ml ONE (10:09)
[2020-09-01] MEDS: cefTRIAXone 2 GM ADDV.VIAL 2 GM in NS 0.9% 100 ml BAG 100 ML IV SCH (20:38)
[2020-09-02] MEDS: Metoprolol Tartrate 5 mg VIAL 5 ml VIAL (1 mg/ml) IV SCH ×5 (03:30→20:56)
[2020-09-02 05:20] LABS: ABS Basophils 0.1 10^3/ul (0-0.2); ABS Eosinophils 0.4 10^3/ul (0-0.6); ABS Lymphocytes 1.2 10^3/ul (1.0-4.8); ABS Monocytes 0.5 10^3/ul (0-0.8); ABS Neutrophils 2.1 10^3/ul (1.5-7.7); Hematocrit 25 % (42-52); Hemoglobin 8.3 g/dL (14.0-18.0); Lymphocyte % 27.8 %; Mean Corpuscular HGB Conc 33 g/dL (31-36); Mean Corpuscular Hemoglobin 27 pg (27-31); Mean Corpuscular Volume 80 fL (80-94); Mean Platelet Volume 8.8 fL (7.4-10.4); Nucleated Red Blood Cells % 0.1; Platelet Count 92 10^3/uL (150-450); Red Blood Count 3.12 10^6 /uL (4.18-5.48); Red Cell Distribution Width 15 % (10-15); White Blood Count 4.2 10^3/uL (3.5-10.8)
[2020-09-02 05:56] LABS: BUN/Creatinine Ratio 26.1 (8-20); EGFR African American 108.8 (>60); EGFR Non-African American 89.9 (>60); Magnesium 1.9 mg/dL (1.9-2.7)
[2020-09-02] MEDS: Cholecalciferol (VIT D3) 1,000 unit TAB PO SCH (09:27)
[2020-09-02] MEDS: Insulin GLARGINE 100 un/ml 10 ml VIAL SUBCUT SCH (09:36)
[2020-09-02] MEDS: Potassium Chlor 10 meq TAB PO SCH (09:44)
[2020-09-02] MEDS: CMC:Simvastatin 20 mg TAB (NF) PO SCH (09:44)
[2020-09-02 15:59] VITALS: BP 130/69
[2020-09-02] MEDS: cefTRIAXone 2 GM ADDV.VIAL 2 GM in NS 0.9% 100 ml BAG 100 ML IV SCH (20:53)
[2020-09-03] MEDS: cefTRIAXone 2 GM ADDV.VIAL 2 GM in NS 0.9% 100 ml BAG 100 ML IV SCH (00:10)
[2020-09-03] MEDS: Metoprolol Tartrate 5 mg VIAL 5 ml VIAL (1 mg/ml) IV SCH ×2 (01:11→12:40)
[2020-09-03] MEDS: Cholecalciferol (VIT D3) 1,000 unit TAB PO SCH (11:51)
[2020-09-03] MEDS: CMC:Simvastatin 20 mg TAB (NF) PO SCH (11:52)
[2020-09-03] MEDS: Potassium Chlor 10 meq TAB PO SCH (11:52)
[2020-09-03] MEDS ORDERED: cefTRIAXone 2 GM ADDV.VIAL 2 GM in NS 0.9% 100 ml BAG 100 ML IV SCH (12:00)
[2020-09-03] MEDS: Insulin GLARGINE 100 un/ml 10 ml VIAL SUBCUT SCH (12:04)
== END 2020-09-03 16:22 | disposition home health service (06) | DRG 539 ==
LOC: MEDTELE 14:16
PROVIDERS: ADMIT Internal Medicine; ATTEND Internal Medicine